=== PATIENT | male | born 1950 | race Caucasian/White ===

== ENCOUNTER 2021-04-13 03:57 | Inpatient (IN) ==
[2021-04-13] MEDS ORDERED: methylPREDNISolone 125 MG/2 ML VIAL IVP ONE (04:34)
[2021-04-13] MEDS ORDERED: Ipratropium/Albuterol Neb 3 ML IH ONE (04:34)
[2021-04-13] MEDS ORDERED: *HR* LORazepam 2 MG/ML VIAL IVP ONE (04:46)
[2021-04-13 05:15] LABS: Basophils # 0.2 K/mcL (0.0-0.2); Basophils % 0.7 %; Eosinophils # 1.3 K/mcL (0.0-0.6); Eosinophils % 5.7 %; Hematocrit 51.2 % (37.5-50.1); Hemoglobin 15.6 g/dL (12.9-16.9); Immature Granulocytes % 0.5 % (0-4); Lymphocytes # 10.2 K/mcL (0.6-4.6); Lymphocytes % 45.5 %; Mean Corpuscular HGB Conc 30.5 g/dL (31.6-35.5); Mean Corpuscular Hemoglobin 28.8 pg (28.0-33.3); Mean Corpuscular Volume 94.5 fL (83.0-100.0); Mean Platelet Volume 9.3 fL (9.4-12.4); Monocytes # 1.5 K/mcL (0.0-1.3); Monocytes % 6.8 %; Neutrophils # 9.1 K/mcL (1.6-8.9); Platelet Count 294 K/mcL (140-400); Red Blood Count 5.42 M/mcL (4.19-5.50); Red Cell Distribution Width 13.6 % (11.5-14.5); Segmented Neutrophils % 40.8 %; White Blood Count 22.4 K/mcL (4.3-11.1)
[2021-04-13 05:17] LABS: ABG Base Excess -4 mEq/L (-2 to 3); ABG HCO3 30 mEq/L (21-27); ABG Oxygen Saturation 94 % (95-98); ABG PCO2 105 mmHg (35-45); ABG PH 7.06 pH Units (7.32-7.45); ABG PO2 106 mmHg (85-104); ABG TCO2 33 mEq/L (20-26)
[2021-04-13 05:25] LABS: INR 1.1; Prothrombin Time 11.8 Seconds (9.4-12.1)
[2021-04-13 05:27] LABS: Activated Partial Thrombo Time 29.4 Seconds (26.0-36.0)
[2021-04-13 05:33] LABS: Alanine Aminotransferase 14 Units/L (7-52); Albumin 4.1 g/dL (3.5-5.7); Albumin/Globulin Ratio 1.4 (1.1-2.2); Alkaline Phosphatase 38 Units/L (34-104); Aspartate Amino Transferase 15 Units/L (13-39); BUN/Creatinine Ratio 20 (6-26); Bilirubin,Direct 0.1 mg/dL (0.0-0.2); Bilirubin,Indirect 0.8 mg/dL (0.0-1.0); Bilirubin,Total 0.9 mg/dL (0.3-1.0); Blood Urea Nitrogen 20 mg/dL (8-23); Calcium 9.4 mg/dL (8.6-10.3); Carbon Dioxide 27 mEq/L (23-29); Chloride 111 mEq/L (98-107); Glucose 184 mg/dL (70-105); Osmolality,Calculated 289 (280-300); Potassium 4.6 mEq/L (3.5-5.1); Sodium 136 mEq/L (136-145); Total Protein 7.1 g/dL (6.4-8.9); Troponin I < 0.03 ng/mL (< 0.04); eGFR For African Americans > 60 (> 60); eGFR For Non-African Americans > 60 (> 60)
[2021-04-13] MEDS ORDERED: Isovue-370 500 ML BOTTLE IVP ONE (05:52)
[2021-04-13 05:57] LABS: Influenza A PCR Negative (Negative); Influenza B PCR Negative (Negative); Resp. Syncytial Virus PCR Negative (Negative)
[2021-04-13 06:00] LABS: SARS-CoV-2 by PCR (In House) Negative (Negative)
[2021-04-13] MEDS ORDERED: *HR* Heparin 5,000 UNIT/ML VIAL IVP ONE ×2 (06:56→07:58)
[2021-04-13] MEDS ORDERED: *HR* Heparin 5,000 UNIT/ML VIAL IVP PRN ×4 (06:56→07:58)
[2021-04-13] MEDS ORDERED: Heparin 25,000UNIT/250ML 1/2NS 25,000 UNIT/250 ML IV.SOLN IVC SCH (07:00)
[2021-04-13] MEDS ORDERED: Melatonin 3 MG TABLET PO PRN (07:58)
[2021-04-13] MEDS ORDERED: Naloxone 0.4 MG/ML INJ IVP PRN (07:58)
[2021-04-13] MEDS: Heparin 25,000UNIT/250ML 1/2NS 25,000 UNIT/250 ML IV.SOLN IVC SCH (08:16)
[2021-04-13 08:22] LABS: Hematocrit 45.1 % (37.5-50.1); Hemoglobin 14.2 g/dL (12.9-16.9); Mean Corpuscular HGB Conc 31.5 g/dL (31.6-35.5); Mean Corpuscular Hemoglobin 28.9 pg (28.0-33.3); Mean Corpuscular Volume 91.7 fL (83.0-100.0); Mean Platelet Volume 9.1 fL (9.4-12.4); Platelet Count 197 K/mcL (140-400); Red Blood Count 4.92 M/mcL (4.19-5.50); Red Cell Distribution Width 13.7 % (11.5-14.5); White Blood Count 12.5 K/mcL (4.3-11.1)
[2021-04-13 08:30] LABS: Heparin anti-factor XA UFH < 0.04 IU/mL (0.30-0.70)
[2021-04-13 08:31] LABS: INR 1.1; Prothrombin Time 12.1 Seconds (9.4-12.1)
[2021-04-13 08:42] LABS: ABG Base Excess 0 mEq/L (-2 to 3); ABG HCO3 27 mEq/L (21-27); ABG Oxygen Saturation 96 % (95-98); ABG PCO2 50 mmHg (35-45); ABG PH 7.33 pH Units (7.32-7.45); ABG PO2 86 mmHg (85-104); ABG TCO2 28 mEq/L (20-26); Blood Gas Modality avaps; Blood Gas VT 550 cc
[2021-04-13] MEDS ORDERED: 0.9 % Sodium Chloride 500 ML IVC ONE (08:56)
[2021-04-13] MEDS ORDERED: *HR* LORazepam 2 MG/ML VIAL IVP PRN (09:22)
[2021-04-13] MEDS: Ipratropium/Albuterol Neb 3 ML IH SCH ×3 (09:38→22:33)
[2021-04-13] MEDS: cefTRIAXone 1,000 MG in 0.9 % Sodium Chloride Mini Bag 100 ML IVPB SCH ×2 (10:27→13:31)
[2021-04-13 10:50] LABS: Adenovirus Not Detected (Not Detect); Bordetella Pertussis Not Detected (Not Detect); Chlamydophila pneumoniae Not Detected (Not Detect); Coronavirus 229E Not Detected (Not Detect); Coronavirus HKU1 Not Detected (Not Detect); Coronavirus NL63 Not Detected (Not Detect); Coronavirus OC43 Not Detected (Not Detect); Human Metapneumovirus Not Detected (Not Detect); Human Rhinovirus/Enterovirus Not Detected (Not Detect); Influenza A Subtype 2009 H1 Not Detected (Not Detect); Influenza B Not Detected (Not Detect); Mycoplasma pneumoniae Not Detected (Not Detect); Parainfluenza Virus 1 Not Detected (Not Detect); Parainfluenza Virus 2 Not Detected (Not Detect); Parainfluenza Virus 3 Not Detected (Not Detect); Parainfluenza Virus 4 Not Detected (Not Detect); Respiratory Syncytial Virus Not Detected (Not Detect); SARS-CoV-2 Not Detected (Not Detect)
[2021-04-13] MEDS: Azithromycin 500 MG in 0.9 % Sodium Chloride 250 ML IVPB SCH (11:22)
[2021-04-13] MEDS: *HR* Buprenorphine HCl 8 MG TAB.SUBL SL SCH ×2 (14:26→20:02)
[2021-04-13] MEDS: carvediloL 6.25 MG TABLET PO SCH (17:23)
[2021-04-13] MEDS: MethylPREDNISolone 40 MG/ML VIAL IVP SCH (17:25)
[2021-04-14] MEDS: MethylPREDNISolone 40 MG/ML VIAL IVP SCH ×2 (01:34→07:31)
[2021-04-14] MEDS: Ipratropium/Albuterol Neb 3 ML IH SCH ×4 (04:47→20:15)
[2021-04-14] MEDS: Azithromycin 500 MG in 0.9 % Sodium Chloride 250 ML IVPB SCH (07:27)
[2021-04-14] MEDS: carvediloL 6.25 MG TABLET PO SCH ×2 (07:35→17:25)
[2021-04-14] MEDS: *HR* Buprenorphine HCl 8 MG TAB.SUBL SL SCH ×3 (07:43→21:00)
[2021-04-14] MEDS: cefTRIAXone 1,000 MG in 0.9 % Sodium Chloride Mini Bag 100 ML IVPB SCH (09:09)
[2021-04-14 09:26] LABS: Basophils % 0.1 %; Hematocrit 39.6 % (37.5-50.1); Hemoglobin 12.8 g/dL (12.9-16.9); Immature Granulocytes % 0.7 % (0-4); Lymphocytes # 0.7 K/mcL (0.6-4.6); Lymphocytes % 4.9 %; Mean Corpuscular HGB Conc 32.3 g/dL (31.6-35.5); Mean Corpuscular Hemoglobin 29.4 pg (28.0-33.3); Mean Platelet Volume 9.7 fL (9.4-12.4); Monocytes # 0.1 K/mcL (0.0-1.3); Monocytes % 1.1 %; Neutrophils # 12.4 K/mcL (1.6-8.9); Platelet Count 161 K/mcL (140-400); Red Blood Count 4.35 M/mcL (4.19-5.50); Red Cell Distribution Width 13.5 % (11.5-14.5); Segmented Neutrophils % 93.2 %; White Blood Count 13.3 K/mcL (4.3-11.1)
[2021-04-14 09:48] LABS: Alanine Aminotransferase 11 Units/L (7-52); Albumin 3.3 g/dL (3.5-5.7); Albumin/Globulin Ratio 1.4 (1.1-2.2); Alkaline Phosphatase 28 Units/L (34-104); Aspartate Amino Transferase 9 Units/L (13-39); BUN/Creatinine Ratio 32 (6-26); Bilirubin,Total 0.5 mg/dL (0.3-1.0); Blood Urea Nitrogen 30 mg/dL (8-23); Calcium 8.5 mg/dL (8.6-10.3); Carbon Dioxide 24 mEq/L (23-29); Chloride 109 mEq/L (98-107); Globulin 2.4 g/dL (2.4-3.5); Glucose 277 mg/dL (70-105); Magnesium 1.7 mg/dL (1.6-2.6); Osmolality,Calculated 298 (280-300); Phosphorous 2.9 mg/dL (2.7-4.5); Potassium 3.8 mEq/L (3.5-5.1); Sodium 136 mEq/L (136-145); Total Protein 5.7 g/dL (6.4-8.9); eGFR For African Americans > 60 (> 60); eGFR For Non-African Americans > 60 (> 60)
[2021-04-14] MEDS ORDERED: Perflutren Lipid Microsphere 1.3 ML in 0.9 % Sodium Chloride 8.7 ML IVP PRN (12:21)
[2021-04-14] MEDS: Heparin 25,000UNIT/250ML 1/2NS 25,000 UNIT/250 ML IV.SOLN IVC SCH (12:42)
[2021-04-15] MEDS: Ipratropium/Albuterol Neb 3 ML IH SCH ×2 (03:34→08:57)
[2021-04-15 04:12] LABS: Hematocrit 40.2 % (37.5-50.1); Hemoglobin 12.7 g/dL (12.9-16.9); Mean Corpuscular HGB Conc 31.6 g/dL (31.6-35.5); Mean Corpuscular Hemoglobin 28.7 pg (28.0-33.3); Mean Platelet Volume 9.9 fL (9.4-12.4); Platelet Count 177 K/mcL (140-400); Red Blood Count 4.42 M/mcL (4.19-5.50); Red Cell Distribution Width 13.8 % (11.5-14.5); White Blood Count 17.2 K/mcL (4.3-11.1)
[2021-04-15 04:23] LABS: INR 1.1; Prothrombin Time 11.9 Seconds (9.4-12.1)
[2021-04-15 04:32] LABS: BUN/Creatinine Ratio 33 (6-26); Blood Urea Nitrogen 30 mg/dL (8-23); Calcium 8.7 mg/dL (8.6-10.3); Carbon Dioxide 28 mEq/L (23-29); Chloride 109 mEq/L (98-107); Glucose 112 mg/dL (70-105); Osmolality,Calculated 291 (280-300); Potassium 4.6 mEq/L (3.5-5.1); Sodium 137 mEq/L (136-145); eGFR For African Americans > 60 (> 60); eGFR For Non-African Americans > 60 (> 60)
[2021-04-15] MEDS: carvediloL 6.25 MG TABLET PO SCH (08:29)
[2021-04-15] MEDS: *HR* Buprenorphine HCl 8 MG TAB.SUBL SL SCH (08:30)
[2021-04-15] MEDS ORDERED: Budesonide/Formoterol 160/4.5 1 PUFF INH IH SCH (10:00)
[2021-04-15 11:53] VITALS: BP 107/54; PULSE 71; TEMP 97.4; O2SAT 97
[2021-04-15] MEDS ORDERED: Apixaban 5 MG TABLET PO SCH (12:25)
[2021-04-22] MEDS ORDERED: Apixaban 5 MG TABLET PO SCH (09:00)
== END 2021-04-15 14:27 | disposition home or self-care (01) | DRG 175 ==
LOC: EMEROOARM 03:57 → 2NENU 12:56
PROVIDERS: ADMIT Internal Medicine; ATTEND Internal Medicine